=== PATIENT | male | born 1935 | race Caucasian/White ===

== ENCOUNTER 2017-04-24 14:59 | Inpatient (IN) ==
[2017-04-24] MEDS ORDERED: SODIUM CHLORIDE 0.9% 500 ML IV STA ×2 (15:47→16:30)
--- NOTE | 2017-04-24 16:20 | XRay Report ---
Portable chest Date: 04/24/2017 Clinical history: Orthostatic hypotension Comparison: 12/02/2015 Technique: Portable AP sitting chest Findings: The heart is normal in size with calcification in the aortic knob. Decreased parenchymal findings at the lung bases with localized eventration of the left hemidiaphragm. Stable mediastinum with degenerative changes. Post operative findings in the right neck. Impression: Significantly reduced parenchymal findings at the lung bases with residual scarring/atelectasis. Localized eventration of the left hemidiaphragm. Underlying COPD. PROCEDURE INTERPRETED AT [facility] DEPARTMENT OF RADIOLOGY Final Report Signed by: Dr. Gissel Khalil
[2017-04-24] MEDS ORDERED: MORPHINE 2 MG/1 ML SYRINGE IV PRN (17:23)
[2017-04-24] MEDS ORDERED: ACETAMINOPHEN 325 MG TABLET PO PRN (17:23)
[2017-04-24] MEDS ORDERED: NALOXONE 0.4 MG/ML VIAL IV PRN (17:23)
[2017-04-24] MEDS ORDERED: ONDANSETRON 4 MG/2 ML VIAL IV PRN (17:23)
--- NOTE | 2017-04-24 17:23 | Emergency Department Note ---
Amrik Morton Brittany, am scribing for, and in the presence of, Elia Frank MD 15:32. Zac Morton Doug C, MD, personally performed the services described in this documentation, ascribed by Veronica Rowley in my presence, and it is both accurate and complete 722 . Arrival - Arrival Chief Complaint: Neuro Stated Complaint: SEIZURES ED Nursing Triage Note: Pt was seen and treated in ER and DX with seizures and placed on Keppra - family states that he is continuing to have same seizure type activity at home last seizure was this afternoon 1400 - pt is awake and alert at time of triage Mode of Arrival: Wheelchair Limitations: No Limitations Source: Patient, RN Notes Reviewed Time Seen by Provider: 04/24/17 15:14 - History of Present Illness HPI Narrative: Patient is a 81-year-old gentleman presents emergency room 2 days ago with complaint of left arm shaking. Patient is having episodes were currently of inability to control his left arm and also had some numbness at the time of these episodes. Patient has a CT of the brain routine laboratory work did reveal no significant abnormality. I told the patient was concerned that he was having focal seizures and that he needed an MRI and EEG and I offered to send him to [facility] where neurology was available. He declined and wanted to try to have this worked up as an outpatient. I empirically began him on Keppra and his son told me keeps on having these episodes and they are now involving both upper extremities. His son told me that he noticed that these only occur when he is upright and he has never had an episode when he was sitting or lying down. Patient has no palpitations or chest pain associated with these episodes but does note they go away when he sits down. He has not fallen. Orthostatic vital signs in the emergency room revealed a significant drop in his blood pressure from lying to standing. Allergies/Adverse Reactions: Allergies Allergy/AdvReac Type Severity Reaction Status Date / Time Iodinated Contrast Media - Allergy Mild Swelling Verified 11/19/15 12:03 Oral and of [Iodinated Contrast Media - Lip/Tongue/Throat, IV Dye] RASH ON BACK Home Medications: Home Medications Medication Instructions Recorded Confirmed Type Duloxetine HCl [Cymbalta] 60 mg PO DAILY 11/19/15 04/24/17 History Levothyroxine Tab [Synthroid Tab] 50 mcg PO DAILY 11/19/15 04/24/17 History Lisinopril 40 mg PO DAILY 11/19/15 04/24/17 History traMADol TAB [Ultram] 50 mg PO DAILY PRN 11/19/15 04/24/17 History traZODone [Desyrel] 50 mg PO BEDTIME 11/19/15 04/24/17 History Albuterol/Ipratropium Neb [Duoneb] 3 ml RESP TX RT Q6H 04/22/17 04/24/17 History Budesonide Neb [Pulmicort Respules] 0.5 mg RESP TX DAILY 04/22/17 04/24/17 History Omeprazole 20 mg PO DAILY 04/22/17 04/24/17 History amLODIPine [Norvasc] 10 mg PO DAILY 04/22/17 04/24/17 History levETIRAcetam TAB [Keppra Tab] 500 mg PO BID #60 tablet 04/22/17 04/24/17 Rx Review of System - Review of System 12 point system: reviewed and no additional remarkable complaints except as stated - Review of System Constitutional: Absent: chills, fever Eyes: Absent: vision change Head/Ears/Nose/Throat: Absent: nasal drainage, sore throat Respiratory: Absent: respiratory distress Cardiovascular: Absent: chest pain, palpitations, syncope Gastrointestinal: Absent: abdominal pain, nausea, vomiting, diarrhea, constipation Genitourinary male: Absent: urgency, dysuria, frequency Musculoskeletal: Absent: arm pain, back pain, leg pain, neck pain Skin: Absent: rash Neurological: Present: headache, weakness (bilateral upper extremities), vertigo , other (tremors of bilateral upper extremities). Absent: confusion Psychiatric: Absent: anxiety, depression Hematological/Lymphatic: Absent: easy bleeding, easy bruising Medical,Surgical,& Family Hx - Medical History Cardio: History of: Hypertension Psychological: History of: Anxiety Disorders, Depression Neurology: No history of: Seizures, Neurological Problems HEENT: History of: Oral Cancer, HEENT Problems (THROAT CANCER, SURGERY DR TOMLINSON , PT HAS VOICE MODULATOR DEVICE) Endocrine: No history of: Endocrine Problems Respiratory: History of: COPD Renal: History of: Renal Problems (PT STATES HE IS USING SELF CATH AT HOME CURRENTLY) Genitourinary: History of: Prostate Problems (ENLARGED PROSTATE) Gastrointestinal: History of: GI Problems (CONSTIPATION) - Surgical History Abdominal Surgeries: Surgical HX of: Cholecystectomy, Hernia Repair - Family History Family History: Reports;: Family Diabetes, Family Heart Disease - Social History Smoking Status: Former smoker Frequency of Alcohol Use: None Type of Drug Use: None Exam Vital Signs: Vital Signs Temperature 98.1 F 04/24/17 15:58 Pulse Rate 72 04/24/17 16:50 Respiratory Rate 20 04/24/17 15:58 Blood Pressure 125/64 04/24/17 16:50 O2 Sat by Pulse Oximetry 97 04/24/17 15:08 - General General appearance: alert, in no apparent distress - Head Head exam: Present: atraumatic, normocephalic, normal inspection - Eye Eye exam: Present: normal appearance, PERRL, EOMI - ENT ENT exam: Present: normal exam, normal oropharynx - Neck Neck exam: Present: normal inspection, full ROM, trachea midline, other ( Patient utilizes Voice Modulator Device ) - Chest Chest inspection: Present: normal inspection, symmetric chest wall rise - Respiratory Respiratory exam: Present: normal lung sounds bilaterally - Cardiovascular Cardiovascular exam: Present: regular rate, normal rhythm, normal heart sounds - Abdominal Exam Abdominal exam: Present: soft, normal bowel sounds. Absent: tenderness - Extremities Exam Extremities exam: Present: normal inspection - Back Exam Back exam: Present: normal inspection - Neurological Exam Neurological exam: Present: alert, oriented X3, CN II-XII intact. Absent: motor sensory deficit - Psychiatric Psychiatric exam: Present: normal affect, normal mood - Skin Skin exam: Present: warm, dry Course Course Narrative: Patient was found to have orthostatic hypotension that responded to IV fluid bolus. Patient did have some left upper extremity weakness when he stood up and could not hold his medicine bag that he tried to excelsior picker. I told him he still needed an MRI and EEG and neurology consult and he was agreeable to coming into the hospital to sort this out. Results - Diagnostic Findings Procedure: Chest x-ray: report reviewed by me (Significantly reduced parenchymal findings at the lung bases with residual scarring/atelectasis. Localized eventration of the left hemidiaphragm. Underylying COPD.) Disposition Clinical Impression: Focal seizure, Orthostatic hypotension Case discussed with: patient, patient's family Disposition: Still a Patient Condition: Stable Time of Disposition: 17:22
[2017-04-24] MEDS ORDERED: DIAZEPAM 5 MG TABLET PO ONE ×2 (17:26→20:11)
[2017-04-24 17:38] LABS: Basophils # 0.1 10*3/uL (0.0-0.2); Basophils % 0.7 % (0.0-0.8); Eosinophils # 0.5 10*3/uL (0.0-0.87); Eosinophils % 4.3 % (0.00-10.9); Hematocrit 40.1 VOL% (42.0-52.0); Hemoglobin 13.6 GM/DL (14.0-18.0); Immature Granulocytes % 1.3 %; Immature Granulocytes Absolute 0.14 #; Lymphocytes # 1.3 10*3/uL (1.4-4.0); Lymphocytes % 12.4 % (21.2-54.2); Mean Corpuscular HGB Conc 33.9 GM/DL (32-36); Mean Corpuscular Hemoglobin 30 PG (27-34); Mean Corpuscular Volume 87.9 FL (87-102); Mean Platelet Volume 9.5 FL (9.6-12.0); Monocytes # 0.8 10*3/uL (0.11-0.8); Monocytes % 7.2 % (1.7-12.7); Neutrophils # 7.9 10*3/uL (1.4-7.4); Neutrophils % 74.1 % (38.7-73.9); Platelet Count 241 T/CUMM (130-400); Red Blood Count 4.56 MC/CUMM (3.8-5.5); Red Cell Distribution Width 14.6 % (9.3-17.3); White Blood Count 10.7 T/CUMM (4-12)
[2017-04-24 17:54] LABS: Albumin 3.5 G/DL (3.4-5.0); Bilirubin,Total 0.4 MG/DL (0.2-1.0); Magnesium 2.3 MG/DL (1.8-2.4); Osmolality,Calculated 281.4 MOS/KG (273-304); Potassium 4.4 MMOL/L (3.5-5.1); Total Protein 6.3 G/DL (6.4-8.3)
--- NOTE | 2017-04-24 18:27 | Ultrasound Report ---
Exam: Carotid ultrasound Date: 04/24/2017 Comparison: None Technique: Duplex scans of the carotid and vertebral arteries using B-mode/Ruelas scale imaging and Doppler spectral analysis and color flow. Reason: Focal seizure, left upper extremity Findings: The right ICA measures 4.3 mm in diameter and the left ICA measures 6.5 mm in diameter. Color-flow documented in the visualized arteries. The peak systolic velocities are as follows: Right CCA: 117.5 cm/s Right ICA: 105.1 cm/s Right ECA: 112.0 cm/s Left CCA: 74.7 cm/s Left ICA: 89.3 cm/s Left ECA: 115.6 cm/s The peak systolic ICA/CCA velocity ratios are as follows: 0.9 on the right and 1.2 on the left. Antegrade flow is present in both vertebral arteries. Impression:[Less than 50% stenosis in both internal carotid arteries with heterogeneous plaque formation. Antegrade flow in both vertebral arteries.] The Society of Radiologists in Ultrasound consensus conference criteria was used. The Ultrasound images were captured and stored. PROCEDURE INTERPRETED AT [facility] DEPARTMENT OF RADIOLOGY Final Report Signed by: Dr. Gissel Khalil
[2017-04-24] MEDS: DEXTROSE 5% NACL 0.45% 1,000 ML IV SCH (18:47)
[2017-04-24] MEDS: DOCUSATE SODIUM 100 MG CAPSULE PO SCH (20:04)
[2017-04-24] MEDS: ENOXAPARIN 40 MG/0.4 ML SYRINGE SUBCUT SCH (20:04)
[2017-04-24] MEDS: ALBUTEROL/IPRATROPIUM 3 ML NEB RESP TX SCH (20:16)
[2017-04-24] MEDS: traZODone 50 MG TABLET PO SCH (23:17)
[2017-04-25] MEDS: ALBUTEROL/IPRATROPIUM 3 ML NEB RESP TX SCH ×4 (00:15→18:54)
[2017-04-25 05:50] LABS: Risk Ratio 3.22; VLDL CHOLESTEROL 26.6 MG/DL
[2017-04-25] MEDS: LEVOTHYROXINE 50 MCG TABLET PO SCH (07:07)
--- NOTE | 2017-04-25 07:17 | Family Practice History&Phys ---
Assessment and Plan (1) Focal seizure Status: Acute Assessment and plan: 04/25/2017: Patient has had an MRI and I do not see any mass lesions but the radiologist has not made a final reading as of yet. Patient's had no further spells since admission. Current Visit: No (2) Orthostatic hypotension Status: Acute Assessment and plan: 04/25/2017: Patient's Norvasc is being held and will continue to watch his vital signs. We will continue to check orthostatic vitals. Current Visit: Yes History of Present Illness Chief complaint: Tremors History of present illness: Mr. Loza is a 81 year old male Patient is a 81-year-old gentleman presents emergency room on 04/22 and 2016 with complaint of tremors in his upper extremities. Patient had a CT of the brain which revealed no acute abnormality. There is no electrolyte disturbance or other abnormality seen. Patient was empirically placed on Keppra and told that he needs an MRI of the brain and EEG. He preferred going home and have this done as an outpatient be returned to emergency room on 2016 with increased frequency of these tremors. His son at that time told me that these occurred only when he was upright and orthostatic vital signs emergency room revealed him to have clear orthostatic hypotension. He persists in having weakness in his left upper extremity which occurs only at the time of these tremors. Due to his lateralizing symptoms I felt it best to admit him and get his MRI, EEG and neurological consultation. Patient agreed to that plan it was admitted. MRI has been done but not been read as of yet. Home Medications Medication Instructions Recorded Confirmed Type Duloxetine HCl [Cymbalta] 60 mg PO DAILY 11/19/15 04/24/17 History Levothyroxine Tab [Synthroid Tab] 50 mcg PO DAILY 11/19/15 04/24/17 History Lisinopril 40 mg PO DAILY 11/19/15 04/24/17 History traMADol TAB [Ultram] 50 mg PO TID 11/19/15 04/24/17 History traZODone [Desyrel] 50 mg PO BEDTIME 11/19/15 04/24/17 History Albuterol/Ipratropium Neb [Duoneb] 3 ml RESP TX RT Q6H 04/22/17 04/24/17 History Budesonide Neb [Pulmicort Respules] 0.5 mg RESP TX DAILY 04/22/17 04/24/17 History Omeprazole 20 mg PO DAILY 04/22/17 04/24/17 History amLODIPine [Norvasc] 10 mg PO DAILY 04/22/17 04/24/17 History Allergies Allergy/AdvReac Type Severity Reaction Status Date / Time Iodinated Contrast Media - Allergy Mild Swelling Verified 04/24/17 18:51 Oral and of [Iodinated Contrast Media - Lip/Tongue/Throat, IV Dye] RASH ON BACK - Constitutional Constitutional: Present: weakness. Absent: chills, frequent falls, headache(s) , lethargy, malaise, night sweats, weight gain, weight loss - EENT Eyes: Absent: blurry vision, loss of vision Ears: Absent: decreased hearing, ear pain Nose, mouth and throat: Present: hoarseness, other (Patient is status post laryngectomy). Absent: nasal congestion, sinus pressure, sore throat - Cardiovascular Cardiovascular: Present: lightheadedness. Absent: chest pain at rest, chest pain with activity, diaphoresis, dyspnea, radiating jaw, neck or arm pain, orthopnea, palpitations - Respiratory Respiratory: Absent: cough, hemoptysis, dyspnea on exertion, wheezing - Gastrointestinal Gastrointestinal: Absent: cramping, diarrhea, dyspepsia, dysphagia, hematemesis , hematochezia, melena, nausea, vomiting - Genitourinary Genitourinary: Absent: dysuria, flank pain, hematuria - Musculoskeletal Musculoskeletal: Absent: arthralgias, back pain, joint swelling - Neurological Neurological: Present: dizziness, focal weakness, numbness, tremor(s). Absent: headache(s), memory loss, syncope - Psychiatric Psychiatric: Absent: anxiety, confusion, depression - Endocrine Endocrine: Absent: fatigue, polydipsia, polyphagia - Hematologic/Lymphatic Hematologic/Lymphatic: Absent: easy bleeding, easy bruising Medical,Surgical,& Family Hx - Medical History Cardio: History of: Hypertension Psychological: History of: Anxiety Disorders, Depression Neurology: No history of: Seizures, Neurological Problems HEENT: History of: Oral Cancer, HEENT Problems (THROAT CANCER, SURGERY DR TOMLINSON , PT HAS VOICE MODULATOR DEVICE) Endocrine: No history of: Endocrine Problems Respiratory: History of: COPD Renal: History of: Renal Problems (PT STATES HE IS USING SELF CATH AT HOME CURRENTLY) Genitourinary: History of: Prostate Problems (ENLARGED PROSTATE) Gastrointestinal: History of: GI Problems (CONSTIPATION) - Surgical History Abdominal Surgeries: Surgical HX of: Cholecystectomy, Hernia Repair Additional Surgical History: Laryngectomy and radical neck dissection in the early - Family History Family History: Reports;: Family Diabetes, Family Heart Disease - Social History Smoking Status: Former smoker Frequency of Alcohol Use: None Type of Drug Use: None Exam - Constitutional Vitals: Period Temp Pulse Resp BP Sys/Michelle Pulse Ox Last 24 Hr 97.2 F-98.1 F 65-104 18-20 111-132/58-73 89-97 Exam: General: Objective patient is a well-developed white male in no acute distress. Patient uses a laryngeal amplifier in his speech is clear. Is able give an excellent history and is articulate. HEENT: Pupils equal and reactive to light. Patent nares and airway Neck: No meningismus, adenopathy, thyromegaly. There are no auscultated carotid bruits. Patient is status post laryngectomy and radical neck dissection Cardiovascular: Regular rhythm. No murmurs or gallops Chest: Clear to auscultation without rales rhonchi wheezes. Abdomen: Soft nontender to palpation No masses, rebound, guarding or tenderness. Neuro: Cranial nerves intact and DTRs and strength symmetric in all extremities. Dermatologic: No evidence of abnormal lesions or masses. Musculoskeletal: There is no joint swelling or tenderness or deformity. Extremities: There is no calf swelling or tenderness Results - Labs CBC & BMP: 04/24/17 17:25 04/24/17 17:25 Lab Results: I have reviewed the past 24 hour labs - Diagnostic Findings Procedure: MRI: report reviewed by me (Final report is pending.), Ultrasound: report reviewed by me (Carotid Dopplers reveal no significant stenosis.) Quality Measures - Stroke Onset of Symptoms Date: 04/22/17 Symptom Onset Unknown: No
[2017-04-25] MEDS: BUDESONIDE 0.5 MG/2 ML NEB RESP TX SCH (07:30)
--- NOTE | 2017-04-25 07:53 | Magnetic Resonance Report ---
Exam: MR head/brain wo con Date: 04/24/2017 5:26 PM submitted for my interpretation on the morning of 04/25/2017 at the time of this dictation Comparison: None Indication: Focal seizure Technical: 1.5 Meg magnet Axial T1 pre-and , ADC, DWI, FLAIR, gradient echo and FSE T2 Sagittal T1 precontrast, FLAIR Coronal FSE T2 Contrast:0 cc Dotarem Findings: Exam reveals no acute diffusion imaging. The brainstem, cerebellum exhibit normal signal characteristics. The cerebral hemispheres exhibit abnormal signal characteristics. Small vessel changes are present within the periventricular subcortical white matter regions with associated cortical atrophy with enlargement of the fluid in the bifrontal space consistent with atrophy. Subdural hygroma cannot be totally excluded bilaterally. The corpus callosum is demonstrated with thinning The seventh and eighth cranial nerves and cerebral pontine angles are intact. The pituitary gland, infundibulum and optic chiasm are intact. The paranasal sinuses exhibit reveal subtotal opacification of the left maxillary antrum. Small fluid or polyp or cyst in the posterior aspect left ethmoid sinus, measuring 1 cm. The remaining paranasal sinuses demonstrate normal signal characteristics. The mastoid sinuses are unremarkable. The globes and intra-and extraconal spaces are unremarkable. Impression: 1. 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 This is slightly more prominent on the right and left. 3. Small vessel ischemic changes. Old tiny lacunar infarctions cannot be excluded. 4. Left maxillary sinusitis with subtotal opacification left maxillary antrum with small amount of fluid or polyps or cyst in the left posterior ethmoid sinus also present 5. No acute hemorrhage or infarction clearly demonstrated. PROCEDURE INTERPRETED AT [facility] DEPARTMENT OF RADIOLOGY Final Report Signed by: Dr. Willie Coronado
[2017-04-25] MEDS: PANTOPRAZOLE 40 MG TABLET PO SCH (08:20)
[2017-04-25] MEDS: DOCUSATE SODIUM 100 MG CAPSULE PO SCH ×2 (08:20→20:38)
[2017-04-25] MEDS: DULoxetine 30 MG CAPSULE PO SCH (08:20)
[2017-04-25] MEDS: LISINOPRIL 20 MG TABLET PO SCH (08:20)
--- NOTE | 2017-04-25 09:36 | Neurology Consult Note ---
History of Present Illness History of present illness: Patient is not a good historian. He cannot speak either. History basically obtained from the chart. 81 years old gentleman with past medical history significant for throat cancer status post tracheostomy in the past presents emergency room on 04/22 and 2016 with complaint of tremors in his upper extremities. Patient had a CT of the brain which revealed no acute abnormality. An MRI of the brain was performed on this admission which reveals no acute abnormalities. There is no electrolyte disturbance or other abnormality seen. Patient has been tried on Keppra without any significant help. He preferred going home and have this done as an outpatient be returned to emergency room on 04/24/2017 with increased frequency of these tremors. There was some element of orthostasis however he has been having these shaking and tremors even while he is laying in bed. He persists in having weakness in his left upper extremity which occurs only at the time of these tremors. [id number] reported that this is being going on for last few weeks but he has regressed significantly in the last 6 months. She seems to think there is some element of depression as well. There is a question whether he is having some attention-gaining behavior. MRI of the brain is unremarkable. He seems to be doing fine and got up and walk for me. Home Medications Medication Instructions Recorded Confirmed Type Duloxetine HCl [Cymbalta] 60 mg PO DAILY 11/19/15 04/24/17 History Levothyroxine Tab [Synthroid Tab] 50 mcg PO DAILY 11/19/15 04/24/17 History Lisinopril 40 mg PO DAILY 11/19/15 04/24/17 History traMADol TAB [Ultram] 50 mg PO TID 11/19/15 04/24/17 History traZODone [Desyrel] 50 mg PO BEDTIME 11/19/15 04/24/17 History Albuterol/Ipratropium Neb [Duoneb] 3 ml RESP TX RT Q6H 04/22/17 04/24/17 History Budesonide Neb [Pulmicort Respules] 0.5 mg RESP TX DAILY 04/22/17 04/24/17 History Omeprazole 20 mg PO DAILY 04/22/17 04/24/17 History amLODIPine [Norvasc] 10 mg PO DAILY 04/22/17 04/24/17 History Allergies Allergy/AdvReac Type Severity Reaction Status Date / Time Iodinated Contrast Media - Allergy Mild Swelling Verified 04/24/17 18:51 Oral and of [Iodinated Contrast Media - Lip/Tongue/Throat, IV Dye] RASH ON BACK 12 point system: reviewed and no additional remarkable complaints except as stated Medical,Surgical,& Family Hx - Medical History Cardio: History of: Hypertension Psychological: History of: Anxiety Disorders, Depression Neurology: No history of: Seizures, Neurological Problems HEENT: History of: Oral Cancer, HEENT Problems (THROAT CANCER, SURGERY DR TOMLINSON , PT HAS VOICE MODULATOR DEVICE) Endocrine: No history of: Endocrine Problems Respiratory: History of: COPD Renal: History of: Renal Problems (PT STATES HE IS USING SELF CATH AT HOME CURRENTLY) Genitourinary: History of: Prostate Problems (ENLARGED PROSTATE) Gastrointestinal: History of: GI Problems (CONSTIPATION) - Surgical History Abdominal Surgeries: Surgical HX of: Cholecystectomy, Hernia Repair - Family History Family History: Reports;: Family Diabetes, Family Heart Disease - Social History Smoking Status: Former smoker Frequency of Alcohol Use: None Type of Drug Use: None Exam - Constitutional Vitals: Period Temp Pulse Resp BP Sys/Michelle Pulse Ox Last 24 Hr 97.2 F-98.1 F 64-104 18-20 111-132/58-73 89-97 Exam: GENERAL: Patient is in no acute distress. NECK: Neck is supple. There is no JVD. No carotid bruits present. No thyroid masses. Has a tracheostomy hole CVS: First and second heart sounds are normal. There is no S3 present. Regular rate and rhythm. RESPIRATORY: Lungs are clear to auscultation without any rales or rhonchi. ABDOMEN: Soft and non-tender. Bowel sounds are present. There is no hepatosplenomegaly. EXT: There is no palpable edema. Peripheral pulses are present. Skin: No rashes Central Nervous system: General: Alert, awake and Oriented x 3 Speech: Cannot talk Comprehension: Intact and normal Facial expressions: Normal Cranial Nerves: CN1/Olfactory: Normal CN II/ Optic: Normal, Visual Oh symmetrical CN III, and : GURVINDER & EOMI CN V: Normal & intact CN VII: face is symmetric CNVIII: Normal CN XI/X/XI/XII: Intact and Normal Motor: Bulk and Tone is normal. No tremor seen whatsoever Strength in the right 5/5 Strength in the left 5/5 Sensory: Grossly intact for all the modalities of PP, LT and temp sense Reflexes: 1+ and symmetrical Cerebellar function: Normal finger to nose and heel to german testing. Toes: Equivocal Gait: Able to get up and walk Results - Labs CBC & BMP: 04/24/17 17:25 04/24/17 17:25 Assessment and Plan (1) Volunteer activity Status: Acute Assessment and plan: There is some strong element of volunteer/functional element whenever he tried to jerk and shakes. No evidence of stroke, TIAs, epilepsy or seizures. We will add Zoloft 25 mg p.o. daily Watch him closely No need to use AEDs at all Thank you for the consult Current Visit: Yes
[2017-04-25 09:50] LABS: Apearance,Urine CLEAR (Clear); Bilirubin,Urine Negative (Negative); Blood, Urine Negative (Negative); Glucose,Urine (UA) Negative (Negative); Ketones,Urine Negative (Negative); Nitrite,Urine Negative (Negative); Protein,Urine Negative; RBC,Urine <1 /HPF (0-4); Urine Color Straw (Yellow); Urine Specific Gravity 1.008 (1.001-1.035); Urine Urobilinogen < 2.0 EU/DL (0.2-1.0); WBC,Urine <1 /HPF (0-6)
[2017-04-25] MEDS: SERTRALINE 25 MG TABLET PO SCH (11:12)
[2017-04-25] MEDS: DEXTROSE 5% NACL 0.45% 1,000 ML IV SCH (16:07)
[2017-04-25] MEDS: traZODone 50 MG TABLET PO SCH (20:38)
[2017-04-25] MEDS: ENOXAPARIN 40 MG/0.4 ML SYRINGE SUBCUT SCH (20:39)
[2017-04-26] MEDS: ALBUTEROL/IPRATROPIUM 3 ML NEB RESP TX SCH ×2 (02:15→07:15)
[2017-04-26] MEDS: BUDESONIDE 0.5 MG/2 ML NEB RESP TX SCH (07:15)
--- NOTE | 2017-04-26 07:17 | Discharge Summary ---
Hospital Course - Hospital Course Hospital Course: Patient 81-year-old gentleman seen in the emergency room with what appear to be focal seizure activity. Patient was admitted an MRI of the brain and EEG were obtained both which revealed no abnormality. It was noted that he only had these episodes when he was up and about and he certainly had orthostatic hypotension in the emergency room. It is my feeling that this is the cause of his tremors. Patient was seen in consultation with Dr. Coto who agreed he did not think these represent seizure activity. Patient returned to his normal and his blood pressure is well controlled after stopping Norvasc. Patient will be seen in the office in 1 month's time Diagnosis - Discharge Diagnosis (1) Focal seizure Status: Ruled-out (2) Orthostatic hypotension Status: Resolved Discharge Plan - Discharge Data Disposition: Disch To Home/Self Care Condition at Discharge: Stable Discharge Diet: advance to your usual diet Activity: resume usual activities as tolerated Hygiene: no restrictions Weight Bearing at Discharge: full weight bearing Driving: no restrictions Contact your physician if you experience:: fever over 101 - Discharge Medications New Sertraline [Zoloft] 25 mg PO DAILY #30 tablet Continue traMADol TAB [Ultram] 50 mg PO TID Lisinopril 40 mg PO DAILY Levothyroxine Tab [Synthroid Tab] 50 mcg PO DAILY Duloxetine HCl [Cymbalta] 60 mg PO DAILY Albuterol/Ipratropium Neb [Duoneb] 3 ml RESP TX RT Q6H Budesonide Neb [Pulmicort Respules] 0.5 mg RESP TX DAILY Omeprazole 20 mg PO DAILY Discontinued amLODIPine [Norvasc] 10 mg PO DAILY No Action traZODone [Desyrel] 50 mg PO BEDTIME - Follow Up or Referral Follow Up: Elia Frank MD [Emergency Provider] - 1 Month - Forms/Instructions Exam - Constitutional Vitals: Period Temp Pulse Resp BP Sys/Michelle Pulse Ox Last 24 Hr 98.0 F-98.7 F 65-76 18-22 114-144/67-78 92-99 Exam: Objectively well-developed gentleman in no acute distress. Is able give good history and he has his usual jovial self. He denies any pain or discomfort this morning and is anxious to go home. Cardiovascular: Heart rates regular and there are no murmurs or gallops. Respiratory: Lungs clear to auscultation bilaterally. 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 He has been ambulating. Discharge Results Labs on day of discharge: Labs from last 24 hours 04/25/17 09:26 Urine Color Straw Urine Appearance Clear Urine pH 7.0 Ur Specific [place] 1.008 Urine Protein Negative Urine Glucose (UA) Negative Urine Ketones Negative Urine Blood Negative Urine Nitrate Negative Urine Bilirubin Negative Urine Urobilinogen < 2.0 H Urine Leukocytes Negative Urine RBC <1 Urine WBC <1 Ur Culture Indicated? Not indicated Normal DS: Provider Date of admission: 04/24/17 17:23 Primary care physician: . No PCP Attending physician on admission: Elia Frank MD Consults: 04/24/17 17:23 Consult to Case Mgmt/Social Srvs [CONS] Routine Reason for Case Mgmt/Social Srvs: Discharge Planning 04/24/17 17:25 Consult to Physician [CONS] Routine Comment: Consulting Provider: Khang Coto Discharging clinician: Elia Frank MD Expected date of discharge: 04/26/17
[2017-04-26 07:52] VITALS: BP 159/89
[2017-04-26] MEDS: LISINOPRIL 20 MG TABLET PO SCH (08:15)
[2017-04-26] MEDS: DOCUSATE SODIUM 100 MG CAPSULE PO SCH (08:16)
[2017-04-26] MEDS: SERTRALINE 25 MG TABLET PO SCH (08:16)
[2017-04-26] MEDS: PANTOPRAZOLE 40 MG TABLET PO SCH (08:16)
[2017-04-26] MEDS: DULoxetine 30 MG CAPSULE PO SCH (08:16)
[2017-04-26] MEDS: LEVOTHYROXINE 50 MCG TABLET PO SCH (08:43)
--- NOTE | 2017-04-26 19:23 | Electroencephalogram ---
HISTORY: An 81 years old male with a history of seizure. INTRODUCTION: A digital EEG was performed using the standard 10/20 system of electrode placement wit h one channel of EKG monitoring. Photic stimulation is performed. DESCRIPTION OF RECORD: The background is somewhat disorganized, consists of 6 to 7 hertz of moderate amplitude bilaterally symmetrical rhythm. Photic stimulation elicits a driving response at slower f lash frequencies. There are no focal, sharp wave, spike or wave activity seen. Heart rate 60 beats per minute. IMPRESSION: ABNORMAL ELECTROENCEPHALOGRAM DUE TO GENERALIZED SLOWING. CLINICAL CORRELATION: This record is supportive of moderately severe encephalopathy which could be s econdary to postictal state, posthypoxic state, metabolic disorder, diffuse HEAD OF MARKETING ADOMETRY insult or increased i ntracranial pressure. No epileptiform/seizure activity is seen. Clinical correlation is suggested.
== END 2017-04-26 09:16 | disposition home or self-care (01) | DRG 312 ==
LOC: N.ED 14:59 → N.EDINP 17:23 → N.2E 18:38
PROVIDERS: ADMIT Family Medicine; ATTEND Family Medicine

== ENCOUNTER 2022-06-11 15:30 | Inpatient (IN) ==
[2022-06-11 17:18] LABS: Basophils # 0.1 10*3/uL (0.0-0.2); Basophils % 0.5 % (0.0-0.8); Eosinophils # 0.1 10*3/uL (0.0-0.87); Hematocrit 33.8 VOL% (42.0-52.0); Hemoglobin 11.8 GM/DL (14.0-18.0); Immature Granulocytes % 2.3 %; Immature Granulocytes Absolute 0.23 #; Lymphocytes % 10.3 % (21.2-54.2); Mean Corpuscular HGB Conc 34.9 GM/DL (32-36); Mean Corpuscular Volume 84.7 FL (87-102); Mean Platelet Volume 8.1 FL (9.6-12.0); Monocytes # 0.5 10*3/uL (0.11-0.8); Monocytes % 5.2 % (1.7-12.7); Neutrophils % 80.7 % (38.7-73.9); Platelet Count 333 T/CUMM (130-400); Red Blood Count 3.99 MC/CUMM (3.8-5.5); Red Cell Distribution Width 13.7 % (9.3-17.3); White Blood Count 9.9 T/CUMM (4-12)
[2022-06-11 17:35] LABS: Albumin 3.7 G/DL (3.4-5.0); Bilirubin,Total 0.6 MG/DL (0.20-1.00); Calcium 10.3 MG/DL (8.5-10.1); Osmolality,Calculated 264.7 MOS/KG (273-304); Potassium 4.2 MMOL/L (3.5-5.1); Total Protein 6.8 G/DL (6.4-8.2)
[2022-06-11 17:37] LABS: INR 0.9; PT Patient Result 10.3 SECS (10.1-12.1)
[2022-06-11] MEDS ORDERED: SODIUM CHLORIDE 0.9% 1,000 ML IV STA (17:40)
[2022-06-11] MEDS ORDERED: methylPREDNISolone SOD SUC 40 MG/1 ML VIAL IV STA (17:58)
[2022-06-11] MEDS ORDERED: ACETAMINOPHEN 325 MG TABLET PO PRN (17:58)
[2022-06-11] MEDS ORDERED: ONDANSETRON 4 MG/2 ML VIAL IV PRN (17:58)
[2022-06-11] MEDS: ALBUTEROL/IPRATROPIUM 3 ML NEB RESP TX SCH (19:00)
[2022-06-11] MEDS ORDERED: traZODone 50 MG TABLET PO SCH (21:00)
[2022-06-11] MEDS: DOCUSATE SODIUM 100 MG CAPSULE PO SCH (21:35)
[2022-06-11] MEDS: GABAPENTIN 300 MG CAPSULE PO SCH (21:35)
[2022-06-12] MEDS: ALBUTEROL/IPRATROPIUM 3 ML NEB RESP TX SCH ×4 (00:45→19:11)
[2022-06-12] MEDS: methylPREDNISolone SOD SUC 40 MG/1 ML VIAL IV SCH ×3 (04:17→20:32)
[2022-06-12] MEDS: LEVOTHYROXINE 50 MCG TABLET PO SCH (06:20)
[2022-06-12] MEDS ORDERED: LORazepam 1 MG TABLET PO ONE (08:31)
[2022-06-12] MEDS ORDERED: BUDESONIDE 0.5 MG/2 ML NEB RESP TX SCH (09:00)
[2022-06-12] MEDS: ASPIRIN EC 81 MG TABLET PO SCH (09:35)
[2022-06-12] MEDS: PANTOPRAZOLE 40 MG TABLET PO SCH (09:35)
[2022-06-12] MEDS: DULoxetine 30 MG CAPSULE PO SCH (09:35)
[2022-06-12] MEDS: DOCUSATE SODIUM 100 MG CAPSULE PO SCH ×2 (09:35→20:33)
[2022-06-12] MEDS: GABAPENTIN 300 MG CAPSULE PO SCH ×3 (09:35→20:33)
[2022-06-12] MEDS: DILTIAZEM CD 240 MG CAPSULE PO SCH (13:15)
[2022-06-12] MEDS: PRAMIPEXOLE 0.25 MG TABLET PO SCH (20:33)
[2022-06-13] MEDS: methylPREDNISolone SOD SUC 40 MG/1 ML VIAL IV SCH ×3 (04:11→21:18)
[2022-06-13] MEDS: LEVOTHYROXINE 88 MCG TABLET PO SCH (06:59)
[2022-06-13] MEDS: LEVOTHYROXINE 50 MCG TABLET PO SCH (07:00)
[2022-06-13] MEDS: ALBUTEROL/IPRATROPIUM 3 ML NEB RESP TX SCH ×4 (09:35→19:20)
[2022-06-13] MEDS: TAMSULOSIN 0.4 MG CAPSULE PO SCH (10:03)
[2022-06-13] MEDS: DULoxetine 30 MG CAPSULE PO SCH (10:03)
[2022-06-13] MEDS: GABAPENTIN 300 MG CAPSULE PO SCH ×3 (10:03→21:18)
[2022-06-13] MEDS: DILTIAZEM CD 240 MG CAPSULE PO SCH (10:04)
[2022-06-13] MEDS: ASPIRIN EC 81 MG TABLET PO SCH (10:04)
[2022-06-13] MEDS: PANTOPRAZOLE 40 MG TABLET PO SCH (10:04)
[2022-06-13] MEDS: DOCUSATE SODIUM 100 MG CAPSULE PO SCH ×2 (10:05→21:19)
[2022-06-13] MEDS: MULTIVITAMIN (CENTRUM) TABLET PO SCH (10:05)
[2022-06-13] MEDS: PRAMIPEXOLE 0.25 MG TABLET PO SCH (21:18)
[2022-06-14] MEDS: ALBUTEROL/IPRATROPIUM 3 ML NEB RESP TX SCH ×5 (01:47→19:54)
[2022-06-14] MEDS: methylPREDNISolone SOD SUC 40 MG/1 ML VIAL IV SCH ×3 (03:55→20:57)
[2022-06-14] MEDS: LEVOTHYROXINE 88 MCG TABLET PO SCH (06:35)
[2022-06-14] MEDS: MULTIVITAMIN (CENTRUM) TABLET PO SCH (08:38)
[2022-06-14] MEDS: GABAPENTIN 300 MG CAPSULE PO SCH ×3 (08:39→20:57)
[2022-06-14] MEDS: DULoxetine 30 MG CAPSULE PO SCH (08:39)
[2022-06-14] MEDS: TAMSULOSIN 0.4 MG CAPSULE PO SCH (08:39)
[2022-06-14] MEDS: ASPIRIN EC 81 MG TABLET PO SCH (08:39)
[2022-06-14] MEDS: DILTIAZEM CD 240 MG CAPSULE PO SCH (08:39)
[2022-06-14] MEDS: DOCUSATE SODIUM 100 MG CAPSULE PO SCH ×2 (08:39→20:56)
[2022-06-14] MEDS: PANTOPRAZOLE 40 MG TABLET PO SCH (08:40)
[2022-06-14 09:15] LABS: Folate 9.06 NG/ML (5.38-24.0)
[2022-06-14] MEDS ORDERED: TUBERCULIN SKIN TEST 0.1 ML SYRINGE INTRADERM ONE (13:58)
[2022-06-14] MEDS: PRAMIPEXOLE 0.25 MG TABLET PO SCH (20:56)
[2022-06-15] MEDS: ALBUTEROL/IPRATROPIUM 3 ML NEB RESP TX SCH ×4 (00:05→19:12)
[2022-06-15] MEDS: methylPREDNISolone SOD SUC 40 MG/1 ML VIAL IV SCH ×3 (05:15→20:57)
[2022-06-15] MEDS: LEVOTHYROXINE 88 MCG TABLET PO SCH (06:07)
[2022-06-15 08:05] LABS: Calcium 9.9 MG/DL (8.5-10.1); Osmolality,Calculated 272.4 MOS/KG (273-304); Potassium 4.3 MMOL/L (3.5-5.1)
[2022-06-15] MEDS: TAMSULOSIN 0.4 MG CAPSULE PO SCH (09:01)
[2022-06-15] MEDS: MULTIVITAMIN (CENTRUM) TABLET PO SCH (09:01)
[2022-06-15] MEDS: DOCUSATE SODIUM 100 MG CAPSULE PO SCH ×2 (09:01→20:50)
[2022-06-15] MEDS: ASPIRIN EC 81 MG TABLET PO SCH (09:02)
[2022-06-15] MEDS: PANTOPRAZOLE 40 MG TABLET PO SCH (09:02)
[2022-06-15] MEDS: DILTIAZEM CD 240 MG CAPSULE PO SCH (09:02)
[2022-06-15] MEDS: GABAPENTIN 300 MG CAPSULE PO SCH ×3 (09:02→20:50)
[2022-06-15] MEDS: DULoxetine 30 MG CAPSULE PO SCH (09:02)
[2022-06-15] MEDS: PRAMIPEXOLE 0.25 MG TABLET PO SCH (20:50)
[2022-06-16] MEDS: ALBUTEROL/IPRATROPIUM 3 ML NEB RESP TX SCH (00:49)
[2022-06-16] MEDS: LEVOTHYROXINE 88 MCG TABLET PO SCH (05:53)
[2022-06-16] MEDS: methylPREDNISolone SOD SUC 40 MG/1 ML VIAL IV SCH ×3 (05:53→20:43)
[2022-06-16] MEDS: PANTOPRAZOLE 40 MG TABLET PO SCH (09:27)
[2022-06-16] MEDS: ASPIRIN EC 81 MG TABLET PO SCH (09:27)
[2022-06-16] MEDS: TAMSULOSIN 0.4 MG CAPSULE PO SCH (09:28)
[2022-06-16] MEDS: DOCUSATE SODIUM 100 MG CAPSULE PO SCH ×2 (09:28→20:42)
[2022-06-16] MEDS: GABAPENTIN 300 MG CAPSULE PO SCH ×3 (09:29→20:42)
[2022-06-16] MEDS: DILTIAZEM CD 240 MG CAPSULE PO SCH (09:29)
[2022-06-16] MEDS: MULTIVITAMIN (CENTRUM) TABLET PO SCH (09:29)
[2022-06-16] MEDS: DULoxetine 30 MG CAPSULE PO SCH (09:30)
[2022-06-16] MEDS: PRAMIPEXOLE 0.25 MG TABLET PO SCH (20:42)
[2022-06-17] MEDS: methylPREDNISolone SOD SUC 40 MG/1 ML VIAL IV SCH (04:45)
[2022-06-17] MEDS: LEVOTHYROXINE 88 MCG TABLET PO SCH (06:19)
[2022-06-17 07:51] VITALS: BP 182/99
[2022-06-17] MEDS: DULoxetine 30 MG CAPSULE PO SCH (08:47)
[2022-06-17] MEDS: DOCUSATE SODIUM 100 MG CAPSULE PO SCH (08:47)
[2022-06-17] MEDS: ASPIRIN EC 81 MG TABLET PO SCH (08:47)
[2022-06-17] MEDS: PANTOPRAZOLE 40 MG TABLET PO SCH (08:47)
[2022-06-17] MEDS: GABAPENTIN 300 MG CAPSULE PO SCH (08:47)
[2022-06-17] MEDS: TAMSULOSIN 0.4 MG CAPSULE PO SCH (08:47)
[2022-06-17] MEDS: MULTIVITAMIN (CENTRUM) TABLET PO SCH (08:47)
[2022-06-17] MEDS: DILTIAZEM CD 240 MG CAPSULE PO SCH (08:50)
== END 2022-06-17 11:22 | DRG 74 ==
LOC: N.EDINP 15:30 → N.ED 15:30 → N.EDINP 20:11 → N.3E 20:28
PROVIDERS: ADMIT Family Medicine; ATTEND Family Medicine